=== PATIENT | female | born 1985 | race Caucasian/White ===

== ENCOUNTER 2017-04-02 19:33 | Emergency (ER) | payer BC ==
--- NOTE | ~2017-04-02 | CT71 ---
[facility] A Service [facility] RADIOLOGY TEXT RESULTS PATIENT: VIRAL HENSON LOCATION: SED : 85 UNIT #: [id number] AGE: [address]: CRAIG HAMILTON SEX: F ORDER DR: [id number] [place] [id number] E MR#: [id number] Acc #: [id number] NAME: VIRAL HENSON : 1985 SEX: F STUDY DATE/TIME: 04/02/2017 21:04 UNIT: SED ROOM: STUDY DESCRIPTION: CT Head Wo Contrast Attending Physician: Craig Hamilton Referring Physician: Craig Hamilton Ordering Physician: Physician Non-Staff Primary Care Physician: Abner Gonzalez M.D. MEDICAL IMAGING REPORT This report is preliminary unless electronic signature is present. EXAM CT head without contrast dated 04/02/[address] head without contrast dated 08/21/2014 HISTORY Headache and high blood pressure for the last [address] exam was performed with one or more of the following radiation dose reduction techniques: automatic exposure control, adjustment of mA and/or kV according to patient size, and iterative reconstruction. FINDINGS CT of the head was obtained without contrast in the axial plane as per the protocol. Axial noncontrast images were obtained from the skull base to the vertex. Ventricular size and configuration are normal. There is no evidence of acute infarct or hemorrhage. There are no extraaxial fluid collections. No mass lesion or mass effect is seen. There are no skull fractures. IMPRESSION Normal noncontrast head CT. Dictated by... Nisa Ahuja M.D. THIS IS AN ELECTRONICALLY VERIFIED REPORT Nisa Ahuja M.D. at 04/03/2017 9:05 PM CPR/jw [facility] A Service [facility] RADIOLOGY TEXT RESULTS PATIENT: VIRAL HENSON LOCATION: SED : 85 UNIT #: [id number] AGE: [address]: CRAIG HAMILTON SEX: F ORDER DR: TD: 04/03/2017 08:59 JOB #: [id number] MEDICAL IMAGING REPORT Page 1 of 1
[~2017-04-02 19:33] MED LIST: ACYCLOVIR PO; AMOXICILLIN PO; FLEXERIL10 MG PO; MOTRIN600 M1 PO; PHENERGAN25 M1 PO; ZOLOFT PO
[2017-04-02] MEDS ORDERED: AMITRIPTYLINE H50 MG PO (19:38)
[2017-04-02] MEDS ORDERED: ZOLOFT50 MG PO (19:39)
[2017-04-02 20:42] LABS: URINE SOURCE CLEAN CATCH
[2017-04-02 20:45] LABS: URINE APPEARANCE CLEAR; URINE BILIRUBIN NEG (NEG); URINE BLOOD TRACE-INTACT (NEG); URINE COLOR YELLOW; URINE GLUCOSE NEG (NORM); URINE KETONE NEG (NEG); URINE LEUKOCYTE ESTERASE NEG (NEG); URINE NITRATE NEG (NEG); URINE PROTEIN NEG (NEG); URINE SPECIFIC GRAVITY 1.025 (1.003-1.035); URINE UROBILINOGEN 0.2 MG/DL (NORM)
[2017-04-02 20:47] LABS: MICRO INDICATED? YES
[2017-04-02 20:51] LABS: CULTURE INDICATED? NO; URINE BACTERIA NEG (NEG); URINE SQUAMOUS EPITHELIAL CELL OCCAS /[HPF]; URINE WBC 0-2 /[HPF] (0-5)
== END 2017-04-02 23:30 | disposition home or self-care (01) ==
LOC: SED 19:33
PROVIDERS: Nurse Practitioner
DX: R51 Headache (principal); R03.0 Elevated blood-pressure reading, without diagnosis of hypertension; Z98.890 Other specified postprocedural states
CPT/HCPCS: 36415; 70450; 81003; 84703; 96374; 96375; 96376; 99284; J1100; J1885; J2405

== ENCOUNTER 2017-04-08 06:08 | Emergency (ER) | payer BC ==
[~2017-04-08 06:08] MED LIST changes: +AMITRIPTYLINE H50 MG PO; +ZOLOFT50 MG PO
[2017-04-08] MEDS ORDERED: ZESTRIL10 M2 PO (06:18)
[2017-04-08] MEDS ORDERED: FIORICET 50-301 EACH PO (06:18)
[2017-04-08] MEDS ORDERED: ANTIANXIETY MED (06:18)
== END 2017-04-08 06:45 | disposition home or self-care (01) ==
LOC: SED 06:08
DX: G89.29 Other chronic pain (principal); R51 Headache; I10 Essential (primary) hypertension; F41.9 Anxiety disorder, unspecified; Z79.899 Other long term (current) drug therapy
CPT/HCPCS: 99283